=== PATIENT | female | born 1950 | race Caucasian/White ===

== ENCOUNTER 2025-05-04 08:14 | Outpatient (REF) | payer MEDICARE, OTHER, SELFPAY ==
--- OUTSIDE RECORDS SUMMARY | 2025-05-04 08:33 | XMS_ITS | Patient Health Record ---
Author Organization [facility] Address [address] [place] [address] Care Team Providers Care Visual Educator Name Role Phone KHUSHBU SHIPMAN M.D. Primary Care Provider Simona Dasilva Unavailable [phone] Allergies No Known Allergies Reason For Referral No Information Medications Medication SIG (Take, Route, Frequency, Duration) Notes Start Date End Date Status Yuvafem 10 MCG 1 tablet Vaginal TWI CE A WEEK; Duration: 90 days 07/25/2024 Active Vitamin C Winter Time Active Multi For Her - as directed Orally Active Yuvafem 10 MCG INSERT 1 TABLET VAGINALLY TWICE A WEEK Active Atorvastatin Calcium 20 MG Oral; Duration: 90 Active Losartan Potassium 25 MG Oral; Duration: 90 Days Active Calcium + D 500-1000-40 MG-UNT-MCG as directed Orally Active Social History Tobacco Use: Social History Observation Description Date Details (start date - stop date) Never Smoker NA - NA AUDIT-C (Standard) Question Answer Notes Did you have a drink contain ing alcohol in the past year? Yes How often did you have six o r more drinks on one occasion in the past year? Never (0 point) How many drinks did you have on a typical day when you were drinking in the past year? 1 or 2 drinks (0 point) How often did you have a dri nk containing alcohol in the past year? Monthly or less (1 point) Points 1 Interpretation Negative Tobacco Control (Standard) Question Answer Notes Tobacco use: Nonsmoker Problems Problem Type SNOMED Code ICD Code Onset Dates Problem Status W/U Status Risk Notes Problem Postmenopausal atrophic vaginitis (37296319) Postmenopausal atrophic vaginitis (N95.2) Active confirmed Problem Age-related osteoporosis (684643056) Age-related osteoporosis without current pathological fracture (M81.0) Active confirmed Problem Leukopenia (15065435) Decreased white blood cell count, unspecified (D72.819) Active confirmed Problem Disorder of breast (79237240) Disorder of breast, unspecified (N64.9) Active confirmed Problem Acute upper respiratory infection (25131739) Acute upper respiratory infections of unspecified site (465.9) Active confirmed Diag Problem Vulvovaginitis (disorder) (90907244) Unspecified vaginitis and vulvovaginitis (616.10) Active confirmed Diag Problem Esophageal reflux (708596353) Esophageal reflux (530.81) Active confirmed Major Problem Menopausal symptom (42286556) Symptomatic menopausal or female climacteric states (627.2) Active confirmed Major Problem Malaise and fatigue (861560995) Other malaise and fatigue (780.79) Active confirmed Diag Problem Cough (69443404) Cough (786.2) Active confirmed Diag Problem Gynecological examination normal (142999177590014) Routine gynecological examination (V72.31) Active confirmed Problem Exercises teaching, guidance, and counseling (745343202) Exercise counseling (V65.41) Active confirmed Diag Problem Screening for malignant neoplasm of colon (352478714) Special screening for malignant neoplasms, colon (V76.51) Active confirmed Major Vital Signs Temperature 97.5 degrees Fahrenheit 07/25/2024 Blood pressure diastolic 74 mm Hg 07/25/2024 Height 61.75 in 07/25/2024 Blood pressure systolic 118 mm Hg 07/25/2024 Weight 141 lbs 07/25/2024 BMI 26 kg/m2 07/25/2024 Encounters Encounter Location Date Provider Diagnosis [address] [address] 07/25/2024 Simona Sheridan Encounter for gynecological examination (general) (routine) without abnormal findings Z01.419 ; Encounter for screening mammogram for malignant neoplasm of breast Z12.31 ; Age-related osteoporosis without current pathological fracture M81.0 ; Postmenopausal atrophic vaginitis N95.2 and Dense breasts, unspecified R92.30 Assessments Encounter Date Diagnosis (ICD Code) Assessment Notes Treatment Notes Treatment Clinical Notes Section Notes 07/25/2024 Encounter for gynecological examination (general) (routine) without abnormal findings (ICD-10 - Z01.419) NO MORE PAP TESTS. 07/25/2024 Encounter for screening mammogram for malignant neoplasm of breast (ICD-10 - Z12.31) REGULAR MAMMOGRAMS AND SBE'S WERE RECOMMENDED. 07/25/2024 Age-related osteoporosis without current pathological fracture (ICD-10 - M81.0) DISCUSSED IMPROVEMENT IN HER T-SCORES AND OSTEOPOROSIS VS OBSTEOPENIA. DISCUSSED OF IMPLICATIONS ON HER HEALTH. CONTINUE ADEQUATE CALCIUM AND VIT D. AND WEIGHT BEARING EXERCISES. REPEAT BMD IN 2025. 07/25/2024 Postmenopausal atrophic vaginitis (ICD-10 - N95.2) CONTINUE YUVAFEM. 07/25/2024 Dense breasts, unspecified (ICD-10 - R92.30) DISCUSSED DENSE BREASTS ON MAMMOGRAM AND ITS IMPLICATIONS. 3D MAMMOGRAMS WERE RECOMMENDED. Plan Of Treatment Pending Test Test Name Order Date MAMMOGRAM, SCREENING 01/29/2015 MAMMOGRAM, SCREENING 03/22/2021 MAMMOGRAM, SCREENING 04/04/2022 MAMMOGRAM, SCREENING 06/25/2023 MAMMOGRAM, SCREENING 07/25/2024 MAMMOGRAM, SCREENING 02/01/2016 1,25OH VITAMIN D 03/20/2016 25OH VITAMIN D 04/04/2022 25OH VITAMIN D 02/15/2018 COMPLETE BLOOD COUNT 02/15/2018 COMPLETE BLOOD COUNT 02/15/2019 COMPREHENSIVE METABOLIC PANEL 02/15/2018 COMPREHENSIVE METABOLIC PANEL 03/20/2016 LH 03/20/2016 LIPID PANEL-B 02/15/2018 N-TELOPEPTIDE CROSS 03/20/2016 PTH, INTACT 03/20/2016 THIN PREP,HPV,LYNETTE IF HPV+ (>29YR)(SCRN) 02/15/2018 TSH 02/15/2018 BONE DENSITY 03/22/2021 BONE DENSITY 06/25/2023 BONE DENSITY 07/25/2024 MM Digital Mammo Screening 04/04/2022 MM Digital Mammo Screening 07/25/2024 MM Digital Mammo Screening 06/25/2023 MM Digital Mammo Screening 03/22/2021 Next Appt Details Provider Name:Simona mota, 07/31/2025 08:00:00 AM, [address], [address], [place], [address], Insurance Providers Payer Name Payer Address Payer Phone Subscriber Number Group Number Insured Name Patient Relationship to Insured Coverage Start Date Coverage End Date MEDICARE [address] [place], [place] [id number] [phone] [id number] KARINA HERCULES Self - patient is the insured /E [employer] [address] [place] [address] [id number] KARINA HERCULES Self - patient is the insured Medical (General) History Medical History History ICD Code Acute vaginitis N76.0 Other fatigue R53.83 Acute upper respiratory infection, unspe cified J06.9 Gastro-esophageal reflux disease without esophagitis K21.9 Menopausal and female climacteric states N95.1 Decreased white blood cell count, unspec ified D72.819 Disorder of breast, unspecified N64.9 Postmenopausal atrophic vaginitis N95.2 Inconclusive mammogram R92.2 Disorder of bone density and structure, unspecified M85.9 Mammographic calcification found on diag nostic imaging of breast R92.1 Other fatigue R53.83 Other specified disorders of bone densit y and structure, multiple sites M85.89 Mammographic heterogeneous density, bila teral breasts R92.333 Surgical History Surgery Date(Month/Year) Colonoscopy [place] Teeth Right Breast Biopsy Lipoma Back Excision Hospitalization History Reason Date(Month/Year) See Surgical Hx 2 Vaginal Deliveries
[2025-05-04 12:13] LABS: Anion Gap 12 (12-20); Blood Urea Nitrogen 14 mg/dL (9-16); Calcium 9.0 mg/dL (8.4-10.2); Carbon Dioxide 25 mmol/L (22-29); Chloride 103 mmol/L (96-108); Estimated Glomerular Filt Rate > 60; Potassium 4.0 mmol/L (3.3-5.1); Sodium 136 mmol/L (135-145)
[2025-05-04 12:26] LABS: Ferritin 149 ng/mL (10-250)
== END 2025-05-04 08:15 | disposition home or self-care (01) ==
LOC: HO.WFDLDS 08:14
PROVIDERS: Visit Provider Internal Medicine
DX: E87.1 Hypo-osmolality and hyponatremia (principal); R79.89 Other specified abnormal findings of blood chemistry
CPT/HCPCS: 36415; 80048; 81256; 82728